=== PATIENT | male | born 1985 | race Hispanic/Latino ===

== ENCOUNTER 2022-05-31 22:03 | Emergency (ER) | payer SELFPAY ==
[~2022-05-31] VITALS: Ht 167.6 cm; Wt 64.0 kg
[2022-06-01] MEDS ORDERED: BACTRIM DS1 TAB PO (00:17)
[2022-06-01] MEDS ORDERED: LOTRIMIN AF JOCK1 % TOP (00:17)
[2022-06-01 00:26] VITALS: BP 111/76
== END 2022-06-01 00:39 | disposition home or self-care (01) | DRG 603 ==
LOC: ED 22:03
DX: L03.116 Cellulitis of left lower limb (principal); B35.3 Tinea pedis

== ENCOUNTER 2022-06-05 20:42 | Emergency (ER) | payer SELFPAY ==
[~2022-06-05] VITALS: Ht 167.6 cm; Wt 75.0 kg
[~2022-06-05 20:42] MED LIST: BACTRIM DS1 TAB PO; LOTRIMIN AF JOCK1 % TOP
[2022-06-05] MEDS ORDERED: VIBRAMYCIN100 M2 PO (22:16)
[2022-06-05] MEDS ORDERED: TERBINAFINE250 M1 PO (22:16)
[2022-06-05 22:58] VITALS: BP 125/70
== END 2022-06-05 23:07 | disposition home or self-care (01) | DRG 607 ==
LOC: ED 20:42
DX: B35.3 Tinea pedis (principal); L03.116 Cellulitis of left lower limb

== ENCOUNTER 2022-06-10 13:11 | Emergency (ER) | payer SELFPAY ==
[~2022-06-10] VITALS: Ht 167.6 cm; Wt 68.0 kg
[~2022-06-10 13:11] MED LIST changes: +TERBINAFINE250 M1 PO; +VIBRAMYCIN100 M2 PO
[2022-06-10 14:20] VITALS: BP 121/72
[2022-06-10] MEDS ORDERED: CEPHALEXIN500 M1 PO (14:30)
[2022-06-10] MEDS ORDERED: BACTRIM DS1 TAB PO (14:30)
== END 2022-06-10 15:30 | disposition home or self-care (01) | DRG 603 ==
LOC: ED 13:11
PROC: 0H9NXZZ Drainage of Left Foot Skin, External Approach (ICD-10-PCS; principal; 2022-06-10)
DX: L02.612 Cutaneous abscess of left foot (principal)

== ENCOUNTER 2022-06-12 06:58 | Emergency (ER) | payer SELFPAY ==
[~2022-06-12 06:58] MED LIST changes: +CEPHALEXIN500 M1 PO
[2022-06-12 07:47] VITALS: BP 118/81
[2022-06-12 08:00] VITALS: BP 122/84
[2022-06-12 08:13] VITALS: BP 122/84
== END 2022-06-12 08:17 | disposition home or self-care (01) | DRG 951 ==
LOC: ED 06:58
DX: Z48.01 Encounter for change or removal of surgical wound dressing (principal)

== ENCOUNTER 2022-06-19 13:35 | Emergency (ER) | payer SELFPAY ==
[~2022-06-19] VITALS: Ht 167.6 cm; Wt 83.0 kg
[2022-06-19 14:57] VITALS: BP 140/90
[2022-06-19 15:00] VITALS: BP 136/86
[2022-06-19 15:15] VITALS: BP 129/89
== END 2022-06-19 15:18 | disposition home or self-care (01) | DRG 951 ==
LOC: ED 13:35
DX: Z48.01 Encounter for change or removal of surgical wound dressing (principal)